=== PATIENT | male | born 1970 | race Caucasian/White ===

== ENCOUNTER 2018-05-05 17:47 | Outpatient (CLI) | payer OTHER | END 2018-05-05 23:59 | disposition home or self-care (01) | LOC: RT 17:47 | PROVIDERS: ATTEND Internal Medicine Cardiovascular Disease | DX: R42 Dizziness and giddiness (principal) | CPT/HCPCS: 93005 ==

== ENCOUNTER 2019-04-17 13:10 | Emergency (ER) | payer OTHER ==
--- NOTE | 2019-04-17 13:13 | ED Physician Documentation ---
PD HPI ANIMAL BITE - Stated complaint Stated Complaint: SQUIRREL BITE - History obtained from History obtained from: Patient - History of Present Illness Location of injury(ies): Left hand (index finger) Details of the event: Other animal (squirrel that had fallen down a small [place] and was lying on beach, did not look well. Patient thought he would help it by carrying it into the [place]. The squirrel reacted and bit his finger as he was carrying it.) Timing - onset: Today Timing - details: Abrupt onset (finger bit and he came to ER directly for evaluation.) Worsened by: Palpating Associated symptoms: No: Weakness, Numbness Review of Systems Neurologic: denies: Focal weakness, Numbness PD PAST MEDICAL HISTORY - Past Medical History Past Medical History: No - Past Surgical History Past Surgical History: No - Present Medications Home Medications: Ambulatory Orders Medication Instructions Recorded Confirmed Amoxicillin/Potassium Clav 1 each PO BID #10 tablet 11/21/14 [Augmentin 875-125 Tablet] Amox/Clav 875/125 [Augmentin] 1 each PO Q12H #10 tablet 04/17/19 - Allergies Allergies/Adverse Reactions: Allergies Allergy/AdvReac Type Severity Reaction Status Date / Time No Known Drug Allergies Allergy Verified 11/21/14 15:23 - Social History Does the pt smoke?: No Smoking Status: Never smoker Does the pt drink ETOH?: No Does the pt have substance abuse?: No - Immunizations Immunizations are current?: No Immunizations: TDAP >10years/unknown PD ED PE NORMAL - Vitals Vital signs reviewed: Yes - General General: Alert and oriented X 3, No acute distress, Well developed/nourished - Derm Derm: Normal color, Warm and dry - Extremities Extremities: Other (left index finger dorsal proximal phalanx with small bite wound into fatty tissue. No pain with ROM of the finger. No FB. ) - Neuro Neuro: Alert and oriented X 3, No motor deficit, No sensory deficit Results - Vitals Vitals: Vital Signs - 24 hr 04/17/19 13:16 Temperature 36.3 C L Heart Rate 70 Respiratory 20 Rate Blood Pressure 126/84 H O2 Saturation 97 Oxygen O2 Source Room air PD MEDICAL DECISION MAKING - ED course Complexity details: considered differential (he had concern for infection and ? rabies. Also thought he was long time from last tetanus. ), d/w patient Departure - Departure Disposition: Home, Self Care Clinical Impression: Bitten by bob, initial encounter Condition: Stable Record reviewed to determine appropriate education?: Yes Instructions: ED Bite Animal General Follow-Up: HENRIQUE NOBLE MD [Primary Care Provider] - Prescriptions: Amox/Clav 875/125 [Augmentin] 1 each PO Q12H #10 tablet Comments: You are given a tetanus booster today and will be good for 10 years. Clean the wound once or twice daily with soap and water and apply ointment. This would be unlikely to get infected so I would just treat it with ointment and cleaning. However if you do develop redness, purulence, swelling to the area (signs of infection) then at that point start the antibiotic. I would not preemptively use the antibiotic given the low risk of infection for this. Tylenol ibuprofen if needed for local pains. Discharge Date/Time: 04/17/19 14:01
[2019-04-17 13:18] VITALS: BP 126/84
[2019-04-17] MEDS ORDERED: MUPIROCIN 2% OINT 1 GM TOP STA (13:31)
[2019-04-17] MEDS ORDERED: TETANUS/DIPHTHERIA/PERTUSSIS 0.5 ML SYRINGE IM ONE (13:32)
== END 2019-04-17 14:01 | disposition home or self-care (01) ==
LOC: ED 13:10
DX: S61.251A Open bite of left index finger without damage to nail, initial encounter (principal); W53.21XA Bitten by squirrel, initial encounter; Y93.K9 Activity, other involving animal care; Y92.832 Beach as the place of occurrence of the external cause
CPT/HCPCS: 90471; 99283; A9270

== ENCOUNTER 2019-04-18 07:54 | Outpatient (CLI) | payer OTHER ==
--- NOTE | 2019-04-18 22:47 | CT Report ---
Reason: CHEST NODULES Procedure Date: 04/18/2019 Accession Number: [id number] / [id number] Procedure: CT - CHEST WO CPT Code: FULL RESULT: EXAM: CT CHEST EXAM DATE: 04/18/2019 08:17 AM. CLINICAL HISTORY: Lung nodules COMPARISONS: CHEST 2 VIEW PA/LAT 03/25/2014 1:41 PM. TECHNIQUE: Routine helical CT imaging was performed through the chest. IV contrast: None. Reconstructions: Coronal and sagittal. In accordance with CT protocol optimization, one or more of the following dose reduction techniques were utilized for this exam: automated exposure control, adjustment of mA and/or KV based on patient size, or use of iterative reconstructive technique. FINDINGS: Lungs/Pleura: There is no consolidation or effusion. No suspicious noncalcified nodules are seen. There is no evidence of subpleural reticulation or architectural distortion. No central airway abnormalities. No pneumothorax. Mediastinum: Normal. No adenopathy or masses. The heart and great vessels are normal. Bones: Unremarkable. Visualized Abdomen: Unremarkable. Other: None. IMPRESSION: No acute or chronic pulmonary CT process. RADIA
== END 2019-04-18 07:55 | disposition home or self-care (01) ==
LOC: DI 07:54
PROVIDERS: ATTEND Internal Medicine Cardiovascular Disease
DX: R42 Dizziness and giddiness (principal); R55 Syncope and collapse
CPT/HCPCS: 71250

== ENCOUNTER 2019-06-19 08:42 | Outpatient (CLI) | payer OTHER ==
--- NOTE | 2019-06-19 12:09 | CARDIAC PROCEDURE NOTE ---
DATE OF SERVICE: 06/19/2019 Physician: Andreina Parikh MD, [facility] INDICATION: Postural dizziness, presyncope. CARDIAC RISK FACTORS: Male gender. elevated cholesterol. PROCEDURE: After signing informed consent, the patient underwent a Sea- protocol treadmill stress test, with Echo imaging at rest and at peak exercise. RESTING HEART RATE: 60. PEAK HEART RATE: 158 (91% predicted maximum heart rate for age). Normal HR response to exercise. RESTING BLOOD PRESSURE: 123/77. PEAK BLOOD PRESSURE: occurred at third stage and was 169/58, and in the 4th stage, at peak exercise, his blood pressure dropped slightly to 159/58. The patient was not lightheaded with this change in blood pressure. He was running at this point and his arm was bent, therefore the accuracy of that final (lower) blood pressure is in question. Patient exercised for 11 minutes and 46 seconds on a Sea-protocol treadmill stress test. He achieved a peak heart rate of 158 (91% PMHR), and achieved 13.5 METS. The patient had no chest pain, no dizziness, mild shortness of breath, and oxygen saturation was 97 to 100% throughout the test (one measured drop of saturation of 88% was in error, since the finger oxygen monitor was, at that point, on the side of the blood pressure cuff, and it was later moved to the opposite arm). Patient achieved a perceived [place] scale of 14/20. Exercise was stopped due to achieving target heart rate and fatigue. RESTING EKG: Normal sinus rhythm, within normal limits. EKG AT PEAK: Scooping ST segment depressions in leads II, III, aVF, and V4 through V6. SUMMARY 1. Normal resting EKG. 2. Excellent exercise tolerance. 3. Nonspecific changes for ischemia by EKG criteria at a good level of stress. 4. Echo images reported separately. cc: Aramis Condon MD TD: 06/19/2019 11:57 [email or web address]
== END 2019-06-19 08:43 | disposition home or self-care (01) ==
LOC: DI 08:42
PROVIDERS: ATTEND Internal Medicine Cardiovascular Disease
DX: R42 Dizziness and giddiness (principal); R55 Syncope and collapse
CPT/HCPCS: 93350

== ENCOUNTER 2023-10-31 20:13 | Emergency (ER) | payer OTHER ==
--- NOTE | 2023-10-31 20:32 | ED Physician Documentation ---
History of Present Illness - Stated complaint Stated Complaint: COUGH/NAUSEA/FEVER - Chief complaint Chief Complaint: General - Additonal information Additional information: 53-year-old male presents emergency department for upper respiratory infection symptoms. Patient says that he has been feeling ill since Wednesday yesterday he was starting to feel significantly better and almost back to normal until today started having a coughing fit to the point where he almost vomited. He says now that he has back into the emergency department he is overall feeling better just ongoing generalized malaise body aches and he had 1 fever today up to 101 F. He said no emesis no nausea no diarrhea or shortness of breath. PD PAST MEDICAL HISTORY - Past Surgical History Past Surgical History: No - Present Medications Home Medications: Ambulatory Orders Medication Instructions Recorded Confirmed Benzonatate [Tessalon] 200 mg PO TID PRN #15 cap 10/31/23 - Allergies Allergies/Adverse Reactions: Allergies Allergy/AdvReac Type Severity Reaction Status Date / Time No Known Drug Allergies Allergy Verified 10/31/23 20:28 - Social History Does the pt smoke?: No Smoking Status: Never smoker Does the pt drink ETOH?: No Does the pt have substance abuse?: No - Immunizations Immunizations are current?: No Immunizations: TDAP >10years/unknown - POLST Patient has POLST: No PD ED PE NORMAL - Vitals Vital signs reviewed: Yes - General General: Alert and oriented X 3, No acute distress, Well developed/nourished - HEENT HEENT: Atraumatic, PERRL - Neck Neck: Supple, no meningeal sign - Cardiac Cardiac: RRR, No murmur, No gallop, Strong equal pulses - Respiratory Respiratory: No respiratory distress, Clear bilaterally - Abdomen Abdomen: Normal bowel sounds - Derm Derm: Normal color, Warm and dry, No rash - Extremities Extremities: No deformity, No edema Results - Vitals Vitals: Vital Signs - 24 hr 10/31/23 10/31/23 20:20 22:08 Temperature 37.1 C Heart Rate 87 82 Respiratory 18 18 Rate Blood Pressure 115/64 123/72 O2 Saturation 97 97 Oxygen O2 Source Room air - EKG (time done) 2054 EKG releavant findings:: EKG personally interpreted by author of this note. Relevant findings are: Rate: Rate (enter#) (69) Rhythm: NSR [place]: Normal QRS: Normal Ischemia: Normal ST segments Computer interpretation: Agree with computer - Labs Labs: Laboratory Tests 10/31/23 20:43 Nasal Adenovirus (PCR) NOT DETECTED Nasal B. parapertussis DNA (PCR) NOT DETECTED Nasal Coronavir 229E PCR NOT DETECTED Nasal Coronavir HKU1 PCR NOT DETECTED Nasal Coronavir NL63 PCR NOT DETECTED Nasal Coronavir OC43 PCR NOT DETECTED Nasal Enterovir/Rhinovir PCR NOT DETECTED Nasal Influ A H1 2009 PCR DETECTED A Nasal Influenza B PCR NOT DETECTED Nasal Influenza A PCR NOT DETECTED Nasal Parainfluen 1 PCR NOT DETECTED Nasal Parainfluen 2 PCR NOT DETECTED Nasal Parainfluen 3 PCR NOT DETECTED Nasal Parainfluen 4 PCR NOT DETECTED Nasal RSV (PCR) NOT DETECTED Nasal B.pertussis DNA PCR NOT DETECTED Nasal C.pneumoniae (PCR) NOT DETECTED [place] Human Metapneumo PCR NOT DETECTED Nasal M.pneumoniae (PCR) NOT DETECTED Nasal SARS-CoV-2 (PCR) NOT DETECTED PD Medical Decision Making - ED course ED course: 53-year-old male presents emergency department for generalized malaise fatigue and cough. He tested positive for influenza, given that he is already had symptoms now for about the last 4 to 5 days there is no indication or need to start him on Tamiflu at this point in time. Patient says he is overall feeling quite better and he was offered ibuprofen which he was amendable to take as well as Tessalon Perles. Prescription for Tessalon Perles was sent to his preferred pharmacy patient told to alternate between Tylenol and ibuprofen for ongoing fevers and chills and told when to come back to the emergency department and told to follow-up with primary care provider. Patient will stay for discharge is declining for any further workup at this point in time. Departure - Departure Disposition: 01 Home, Self Care Clinical Impression: Upper respiratory infection Qualifiers: URI type: unspecified viral URI Qualified Code(s): J06.9 - Acute upper respiratory infection, unspecified Instructions: ED URI Viral Prescriptions: Benzonatate [Tessalon] 200 mg PO TID PRN #15 cap PRN Reason: Cough Comments: Thank you for trusting us with your care. As we discussed I believe that you are experiencing symptoms from an upper respiratory infection also known as a virus. There is no antibiotics that need to be initiated for this. This is such as the common cold versus the common flu. We have sent a respiratory panel out we should hear back soon if you tested positive for anything we will call you with those results. I sent a prescription of Tessalon Perles to your preferred pharmacy you can take 1 pill up to 3 times a day to help with your cough. Also as we discussed for your fevers chills and bodyaches you can take 1000 mg of Tylenol every 8 hours and 600 mg of ibuprofen every 6 hours as needed please come back to the emergency department if you are having fevers and chills lasting longer than 5 days consistently every single day, shortness of breath, chest pain, or any other concerning symptoms. Please follow-up with your primary care provider as needed, wishing you a speedy recovery. Forms: PCP List Discharge Date/Time: 10/31/23 22:09
[2023-10-31 20:33] VITALS: O2SAT 97
[2023-10-31 21:49] LABS: B. PARAPERTUSSIS- RESP PCR PAN NOT DETECTED; B. PERTUSSIS- RESP PCR PANEL NOT DETECTED; C. PNEUMONIAE- RESP PCR PANEL NOT DETECTED; CORONAVIRUS 229E-RESP PCR NOT DETECTED; CORONAVIRUS HKU1-RESP PCR NOT DETECTED; CORONAVIRUS NL63-RESP PCR NOT DETECTED; CORONAVIRUS OC43-RESP PCR NOT DETECTED; HUMAN METAPNEUMOVIRUS NOT DETECTED; INFLUENZA A H1 2009- RESP PCR DETECTED; INFLUENZA A- RESP PCR PANEL NOT DETECTED; INFLUENZA B - RESP PCR PANEL NOT DETECTED; M. PNEUMONIAE- RESP PCR PANEL NOT DETECTED; PARAINFLUENZA VIRUS 1 NOT DETECTED; PARAINFLUENZA VIRUS 2 NOT DETECTED; PARAINFLUENZA VIRUS 3 NOT DETECTED; PARAINFLUENZA VIRUS 4 NOT DETECTED; RHINOVIRUS/ENTEROVIRUS NOT DETECTED; RSV- RESP PCR PANEL NOT DETECTED; SARS-CoV-2 -RESP PCR PANEL NOT DETECTED
[2023-10-31] MEDS: BENZONATATE 100 MG CAPSULE PO STA (22:05)
[2023-10-31] MEDS: IBUPROFEN 600 MG TABLET PO STA (22:05)
[2023-10-31 22:17] VITALS: BP 123/72
== END 2023-10-31 22:09 | disposition home or self-care (01) ==
LOC: ED 20:13
DX: J10.1 Influenza due to other identified influenza virus with other respiratory manifestations (principal)
CPT/HCPCS: 87633; 93005; 99283; 99284; A9270

== ENCOUNTER 2023-11-29 11:06 | Outpatient (CLI) | payer OTHER ==
--- NOTE | 2023-11-29 16:47 | Ultrasound Report ---
PROCEDURE: Bladder INDICATIONS: POLYURIA TECHNIQUE: Real-time scanning was performed of the bladder, with image documentation. COMPARISON: None FINDINGS: . Renal cortical echotexture is normal. No hydronephrosis or nephrolithiasis. No suspicious solid mass lesions. Bladder: Pre-void bladder volume is 269.6 mL. Post-void residual is 34.47 mL. Pre-void images demo nstrate no intraluminal masses or stones. On pre-void images, ureteral jets are noted with color Dop pler interrogation. (Of note, ureteral jets may not be detectable in up to 25% of cases due to insuf ficient differences in specific gravity between ureteral and bladder urine). Miscellaneous: No free pelvic fluid. IMPRESSION: No gross bladder wall abnormality. Small to moderate amount of postvoid residual measures 34.47 cc. Reviewed by: Moody Nielsen MD on 11/29/2023 4:46 PM PDT Approved by: Moody Nielsen MD on 11/29/2023 4:46 PM PDT Station ID: [id number]
== END 2023-11-29 11:07 | disposition home or self-care (01) ==
LOC: DI 11:06
PROVIDERS: ATTEND Family Medicine
DX: R35.89 Other polyuria (principal)

== ENCOUNTER 2023-11-30 17:46 | Emergency (ER) | payer OTHER ==
[2023-11-30 18:07] VITALS: O2SAT 100
[2023-11-30 18:23] LABS: BASOPHILS % (AUTO) 0.5 %; EOSINOPHILS # (AUTO) 0.1 10^3/uL (0.0-0.7); EOSINOPHILS % (AUTO) 1.1 %; HCT - HEMATOCRIT 39.2 % (42.0-52.0); HGB - HEMOGLOBIN 13.4 g/dL (14.0-18.0); LYMPHOCYTES % (AUTO) 36.8 %; MEAN CORPUSCULAR HGB CONC 34.2 g/dL (32.0-36.0); MEAN CORPUSCULAR VOLUME 90.7 fL (80.0-94.0); MEAN PLATELET VOLUME 9.4 fL (7.4-11.4); MONOCYTES # (AUTO) 0.4 10^3/uL (0.0-1.0); MONOCYTES % (AUTO) 7.6 %; NEUTROPHILS % (AUTO) 53.8 %; PLT - PLATELET COUNT 267 10^3/uL (130-450); RED BLOOD COUNT 4.32 10^6/uL (4.70-6.10); WHITE BLOOD COUNT 5.5 x10^3/uL (4.8-10.8)
[2023-11-30 18:42] LABS: ALBUMIN 4.4 g/dL (3.2-5.5); ALBUMIN/GLOBULIN RATIO 1.6 (1.0-2.2); BILIRUBIN,TOTAL 0.4 mg/dL (0.2-1.0); MAGNESIUM 1.8 mg/dL (1.7-2.3); POTASSIUM 4.2 mmol/L (3.5-4.5); TOTAL PROTEIN 7.1 g/dL (6.4-8.9)
[2023-11-30 18:53] LABS: THYROID STIMULATING HORMONE 1.74 uIU/mL (0.34-5.60)
[2023-11-30 18:54] VITALS: BP 125/95
--- NOTE | 2023-11-30 18:54 | ED Physician Documentation ---
History of Present Illness - Stated complaint Stated Complaint: FATIGUE/HIGH HR - Chief complaint Chief Complaint: General - History obtained from History obtained from: Patient - Additonal information Additional information: Otherwise healthy 53-year-old gentleman presents the emergency department with a complaint of episodic fatigue. States that ever since he had influenza 2 months ago he has these bouts of fatigue. They are often after eating and for about 10 or 15 minutes he will feel profoundly fatigued and has to lay down. It is associated with a feeling of pounding slow heart rate but not chest pain per se. He is an active runner and has still been able to run despite this, but does feel like he slowed down a bit. He notes no weight changes. He is sleeping well and does not think he snores. Review of Systems Constitutional: reports: Fatigue. denies: Fever, Chills, Myalgias, Weight Loss, Sweats Nose: denies: Rhinorrhea / runny nose Cardiac: denies: Chest pain / pressure, Pedal edema, Calf pain Respiratory: reports: Cough. denies: Dyspnea, Hemoptysis, Wheezing GI: denies: Abdominal Pain Musculoskeletal: denies: Neck pain, Back pain PD PAST MEDICAL HISTORY - Past Medical History Cardiovascular: None Respiratory: None Neuro: None Endocrine/Autoimmune: None GI: None : Frequency Psych: None Musculoskeletal: None Derm: None - Past Surgical History Past Surgical History: No - Present Medications Home Medications: Ambulatory Orders Medication Instructions Recorded Confirmed Multivitamin 1 each PO DAILY 11/30/23 11/30/23 - Allergies Allergies/Adverse Reactions: Allergies Allergy/AdvReac Type Severity Reaction Status Date / Time No Known Drug Allergies Allergy Verified 11/30/23 17:52 - Social History Does the pt smoke?: No Smoking Status: Former smoker Does the pt drink ETOH?: Yes Does the pt have substance abuse?: No - Immunizations Immunizations are current?: Yes Immunizations: TDAP >10years/unknown - POLST Patient has POLST: No PD ED PE NORMAL - Vitals Vital signs reviewed: Yes - General General: Alert and oriented X 3, No acute distress - HEENT HEENT: PERRL, EOMI - Neck Neck: Supple, no meningeal sign, No bony TTP - Cardiac Cardiac: RRR, No murmur - Respiratory Respiratory: No respiratory distress, Clear bilaterally - Abdomen Abdomen: Soft, Non tender - Back Back: No CVA TTP, No spinal TTP - Derm Derm: Normal color, Warm and dry - Extremities Extremities: No edema, No calf tenderness / cord - Neuro Neuro: Alert and oriented X 3, Normal speech Eye Opening: Spontaneous Results - Vitals Vitals: Vital Signs - 24 hr 11/30/23 11/30/23 17:53 18:44 Temperature 36.4 C L Heart Rate 62 55 L Respiratory 16 18 Rate Blood Pressure 136/91 H 125/95 H O2 Saturation 100 100 Oxygen O2 Source Room air - EKG (time done) 1805 EKG releavant findings:: EKG personally interpreted by author of this note. Relevant findings are: Rate: Rate (enter#) (53) Rhythm: NSR [place]: Normal Intervals: Normal [place] QRS: Normal Ischemia: Normal ST segments - Labs Labs: Laboratory Tests 11/30/23 11/30/23 11/30/23 18:18 18:18 19:10 WBC 5.5 RBC 4.32 L Hgb 13.4 L Hct 39.2 L MCV 90.7 MCH 31.0 MCHC 34.2 RDW 12.0 Plt Count 267 MPV 9.4 Neut # (Auto) 3.0 Lymph # (Auto) 2.0 [place] # (Auto) 0.4 Eos # (Auto) 0.1 Baso # (Auto) 0.0 Absolute Nucleated RBC 0.00 Nucleated RBC % 0.0 Sodium 137 Potassium 4.2 Chloride 103 Carbon Dioxide 31 Anion Gap 3.0 L BUN 18 Creatinine 1.0 Estimated GFR (MDRD) 79 L Glucose 76 Calcium 10.0 Magnesium 1.8 Total Bilirubin 0.4 AST 17 ALT 17 Alkaline Phosphatase 66 Troponin I High Sens 4.6 Total Protein 7.1 Albumin 4.4 Globulin 2.7 Albumin/Globulin Ratio 1.6 TSH 1.74 - Rads (name of study) 2 view chest x-ray is unremarkable Relevant Findings:: Final report received, EMP independent interpretation of test PD Medical Decision Making - ED course ED course: He is intermittent fatigue especially after eating associated with a feeling of a low heart rate. There is no chest pain with it.. His examination is normal. Differential would include viral myocarditis causing bradycardic episodes. Workup in the emergency department was negative/normal. He has very mild chronic anemia, CMP normal, troponin normal, chest x-ray normal, TSH normal. Outpatient follow-up was advised for consideration for prolonged cardiac monitoring given his symptoms and potential further workup that was unrevealing. Departure - Departure Disposition: 01 Home, Self Care Clinical Impression: Fatigue Qualifiers: Fatigue type: unspecified Qualified Code(s): R53.83 - Other fatigue Condition: Good Record reviewed to determine appropriate education?: Yes Comments: The cause of your symptomatology is not clear. Blood work including CBC, CMP, troponin testing and chest x-ray were all normal as was your EKG. Given your intermittent symptomatology I would think the next step would [place] cardiac monitoring with a product such as a CAM patch or Zio patch. Return for new or worsening symptoms. Forms: PCP List
--- NOTE | 2023-11-30 19:28 | XRAY Report ---
PROCEDURE: Chest 2V INDICATIONS: cough TECHNIQUE: 2 views of the chest were acquired. COMPARISON: Chest x-ray, 03/25/2014. FINDINGS: Surgical changes and devices: None. Lungs and pleura: No pleural effusions or pneumothorax. Lungs are clear. Mediastinum: Mediastinal contours appear normal. Heart size is normal. Bones and chest wall: No suspicious bony lesions. Overlying soft tissues appear unremarkable. IMPRESSION: No acute cardiopulmonary process. Reviewed by: Alli Blanco MD on 11/30/2023 7:27 PM PDT Approved by: Alli Blanco MD on 11/30/2023 7:27 PM PDT Station ID: [id number]
== END 2023-11-30 19:56 | disposition home or self-care (01) ==
LOC: ED 17:46
DX: R53.83 Other fatigue (principal); Z87.891 Personal history of nicotine dependence
CPT/HCPCS: 36415; 80053; 83735; 84443; 84484; 85025; 93005; 99284